=== PATIENT | female | born 1980 | race Caucasian/White ===

== ENCOUNTER → 2018-07-06 | Outpatient (CLI) | payer BC ==
[2018-07-06 17:34] LABS: ABSOLUTE LYMPHOCYTES (AUTO) 1.7 10^3/uL (0.5-4.7); ABSOLUTE MONOCYTES (AUTO) 0.4 10^3/uL (0.1-1.4); BASOPHILS % (AUTO) 0.6 % (0-2); HEMATOCRIT 31.4 % (36.0-47.0); HEMOGLOBIN 10.2 g/dL (12.0-15.5); LYMPHOCYTES % (AUTO) 42.3 % (13-45); MEAN CORPUSCULAR HEMOGLOBIN 22.5 pg (27.0-33.4); MEAN CORPUSCULAR HGB CONC 32.4 g/dL (32.0-36.0); MEAN CORPUSCULAR VOLUME 69 fl (80-97); MONOCYTES % (AUTO) 8.7 % (3-13); PLATELET COUNT 422 10^3/uL (150-450); RED BLOOD COUNT 4.53 10^6/uL (3.72-5.28); RED CELL DISTRIBUTION WIDTH 16.8 % (11.5-14.0); SEGMENTED NEUTROPHILS % (AUTO) 48.4 % (42-78); TOTAL CELLS COUNTED % (AUTO) 100 %; WHITE BLOOD COUNT 4.1 10^3/uL (4.0-10.5)
[2018-07-06 17:42] LABS: APPEARANCE,URINE SLIGHTLY-CLOUDY; BILIRUBIN,URINE NEGATIVE (NEGATIVE); COLOR,URINE STRAW; GLUCOSE, URINE NEGATIVE (NEGATIVE); KETONES,URINE NEGATIVE (NEGATIVE); LEUKOCYTE ESTERASE,URINE SMALL (NEGATIVE); NITRITE,URINE NEGATIVE (NEGATIVE); PROTEIN,URINE NEGATIVE (NEGATIVE); URINE SPECIFIC GRAVITY 1.008; UROBILINOGEN,URINE NEGATIVE mg/dL (<2.0)
[2018-07-06 17:43] LABS: INTERNATIONAL RATION (INR) 0.95; PARTIAL THROMBOPLASTIN TIME 31.6 SEC (23.5-35.8); PROTHROMBIN TIME 13.2 SEC (11.4-15.4)
== END ==
LOC: OD 16:04
PROVIDERS: ATTEND Physician Assistant
DX: G89.4 Chronic pain syndrome (principal)
CPT/HCPCS: 36415; 81001; 85025; 85610; 85730

== ENCOUNTER 2018-08-18 06:04 | Day surgery (SDC) | payer BC ==
[2018-08-11 11:29] LABS: HEMATOCRIT 32.2 % (36.0-47.0); MEAN CORPUSCULAR HEMOGLOBIN 21.9 pg (27.0-33.4); MEAN CORPUSCULAR HGB CONC 31.1 g/dL (32.0-36.0); MEAN CORPUSCULAR VOLUME 70 fl (80-97); PLATELET COUNT 418 10^3/uL (150-450); RED BLOOD COUNT 4.58 10^6/uL (3.72-5.28); RED CELL DISTRIBUTION WIDTH 17.1 % (11.5-14.0); WHITE BLOOD COUNT 5.7 10^3/uL (4.0-10.5)
[2018-08-11 11:40] LABS: INTERNATIONAL RATION (INR) 0.96; PROTHROMBIN TIME 13.3 SEC (11.4-15.4)
[2018-08-11 11:58] LABS: APPEARANCE,URINE CLOUDY; BILIRUBIN,URINE MODERATE (NEGATIVE); COLOR,URINE YELLOW; GLUCOSE, URINE NEGATIVE (NEGATIVE); KETONES,URINE NEGATIVE (NEGATIVE); LEUKOCYTE ESTERASE,URINE TRACE (NEGATIVE); NITRITE,URINE NEGATIVE (NEGATIVE); PROTEIN,URINE 30 mg/dL (NEGATIVE); URINE SPECIFIC GRAVITY 1.024; UROBILINOGEN,URINE NEGATIVE mg/dL (<2.0)
--- NOTE | 2018-08-11 13:12 | EKG REPORT ---
SEVERITY:- OTHERWISE NORMAL ECG - SINUS BRADYCARDIA : Confirmed by: Marimar Israel MD 11-Aug-2018 13:11:53
--- NOTE | 2018-08-11 14:13 | RADIOLOGY REPORT (SQ) ---
EXAM DESCRIPTION: CHEST PA/LATERAL COMPLETED DATE/TIME: 08/11/2018 11:24 am REASON FOR STUDY: Pre-Op COMPARISON: None. EXAM PARAMETERS: NUMBER OF VIEWS: Two views. TECHNIQUE: Digital Frontal and Lateral radiographic views of the chest acquired. RADIATION DOSE: NA LIMITATIONS: None. FINDINGS: LUNGS AND PLEURA: No opacities, masses or pneumothorax. No pleural effusion. MEDIASTINUM AND HILAR STRUCTURES: No masses or contour abnormalities. HEART AND VASCULAR STRUCTURES: Heart normal size. No evidence for failure. BONES: No acute findings. HARDWARE: None. OTHER: No other significant finding. IMPRESSION: 1. NO SIGNIFICANT RADIOGRAPHIC FINDING IN THE CHEST. TECHNICAL DOCUMENTATION: JOB ID: [id number] [email or web address]- All Rights Reserved Reading location - IP/workstation name: [email or web address]
[~2018-08-18 06:04] MED LIST: CLINDAMYCIN 600 MG/D5W RTU 600 MG/50 ML RTUPB IV ONE; CLINDAMYCIN 600 MG/D5W RTU 600 MG/50 ML RTUPB IV PRN; LACTATED RINGERS 1000 ML IV PRN; LIDOCAINE 0.5% INJ-PF (5 MG/ML) 50 ML SDV SUBCUT PRN
[2018-08-18] MEDS ORDERED: BUPIVACAINE HCL 0.5 % INJ/PF 30 ML SDV ONE (06:39)
[2018-08-18] MEDS ORDERED: SODIUM BICARBONATE 8.4% INJ 50 MEQ/50 ML DISP.SYRIN ONE (06:39)
[2018-08-18] MEDS ORDERED: LIDOCAINE 1% INJ-PF (10 MG/ML) 30 ML SDV ONE ×3 (06:39→08:32)
[2018-08-18] MEDS ORDERED: BUPIVACAINE HCL 0.25% /EPINEPHRINE INJ/PF 30 ML SDV ONE (06:39)
[2018-08-18] MEDS ORDERED: FENTANYL CITRATE INJ/PF 100 MCG/2 ML AMPUL ONE (06:43)
[2018-08-18] MEDS ORDERED: MIDAZOLAM 2 MG/2 ML INJ ONE (06:43)
[2018-08-18] MEDS ORDERED: PROPOFOL INJ 200 MG/20 ML VIAL IV ONE ×2 (06:44→08:40)
[2018-08-18] MEDS ORDERED: PROMETHAZINE HCL INJ 25 MG/1 ML VIAL IV PRN (08:17)
[2018-08-18] MEDS ORDERED: FENTANYL CITRATE INJ/PF 100 MCG/2 ML AMPUL IV PRN ×3 (08:17)
[2018-08-18] MEDS ORDERED: NALBUPHINE HCL INJ 10 MG/1 ML AMPULE ONE (08:36)
[2018-08-18] MEDS ORDERED: CLINDAMYCIN 600 MG/D5W RTU 600 MG/50 ML RTUPB IV ONE (09:37)
[2018-08-18] MEDS ORDERED: OXYCODONE-ACETAMINOPHEN 5-325 MG TABLET PO PRN (09:39)
[2018-08-18] MEDS ORDERED: OXYCODONE-ACETAMINOPHEN 5-325 MG TABLET ONE (10:15)
--- NOTE | 2018-08-18 10:32 | OPERATIVE REPORT E ---
Operative Report NAME: TIANA ROJAS : 1980 AGE: 37Y DATE OF SURGERY: 08/18/2018 ROOM: PREOPERATIVE DIAGNOSIS: LUMBAR RADICULOPATHY, POST LAMINECTOMY SYNDROME, AND INTRACTABLE BACK AND LOWER EXTREMITY PAIN. POSTOPERATIVE DIAGNOSIS: LUMBAR RADICULOPATHY, POST LAMINECTOMY SYNDROME, AND INTRACTABLE BACK AND LOWER EXTREMITY PAIN. OPERATION: Implantation of right and left spinal cord simulator and electrodes under fluoroscopic guidance and implantation of programmable rechargeable [employer] pulse generator, complex programming, and fluoroscopy for needle and wire placement. INDICATION: Intractable pain with successful outpatient trial with spinal cord stimulation. SURGEON: PRIMARY: SAMIR HARDING M.D. RESIDENTIAL COLLECTIONS: ALEXEY CHOWDHURY M.D. ANESTHESIA: MAC TISSUE REMOVED OR ALTERED: None. PROCEDURE: After informing obtained consent and advising the patient of the risks and benefits, including serious neurological injury, bleeding, infection, allergic reaction, paralysis, aggravation of pain, poor pain relief, and , she was taken to the operating room and placed comfortably in the prone position. Comfort was assessed visually and verbally. Monitors were applied. MAC anesthesia was administered. She was then draped after prepping with chlorhexidine with appropriate drying time. The spine was evaluated under fluoroscopy and suitable midline lumbar incision site was identified. A predetermined site for the pulse generator over the right gluteal region had also been selected. Both regions were anesthetized with 1% lidocaine with bicarb as necessary in the skin as well as subcutaneous tissues and 0.25% bupivacaine with epinephrine was then utilized as a supplemental local anesthetic for hemostasis and additional anesthesia. Sharp and blunt dissection were performed in both regions to create suitable working space. Hemostasis was obtained with electrocautery. The pulse generator pocket with the site was created without difficulty. The lumbar fascia was identified. The Shelbi retractor was placed. *------* was then utilized for insertion of the 14-gauge Touhy needles to insert the L1-L2 interspace. The octrode leads were then placed through the right and left wires and advanced up to the mid T8 region so that the spanning electrodes went from T8 to mid T10. The pursestrings were placed around each of the needles followed by distal stay sutures. The leads were inspected frequently for appropriate location in the posterior epidural space as well as prevention of movement during manipulation. The right Touhy needle was removed with care being taken not to dislodge off position of the electrode. The pursestrings with 2 Mersilene were secured followed by placement of the anchor. The distal stay suture was then placed on the anchor as well and secured. This was repeated on the left. The lead position was checked and was felt to be satisfactory. The leads were then tunneled, marking the left lead with a black marker. They were tunneled to the pulse generator site without difficulty. They were connected to the pulse generator. Hex nuts were secured. Impedance was tested and found to be satisfactory. The pulse generator was placed in the wound after irrigation with the labeling facing the skin. Additional irrigation was performed in both locations. The wounds were then closed. The midline incision was closed with 2-0 pop-off Vicryl followed by 3-0 pop-off Vicryl followed by Dermabond tape and cement. The gluteal incision was closed with a single layer of 3-0 pop-offs, inverted vertical mattress sutures, followed by Dermabond tape and cement. Upon completion, the patient was taken to the PACU for further postoperative care and monitoring. DICTATING PHYSICIAN: ALEXEY CHOWDHURY M.D. [id number] PHY#: [id number] ID: [id number] JOB#: [id number] ACCT: [id number] cc:ALEXEY CHOWDHURY M.D. >
[2018-08-18 11:17] VITALS: BP 111/82
--- NOTE | 2018-08-18 14:30 | RADIOLOGY REPORT (SQ) ---
EXAM DESCRIPTION: NO CHG FLUORO; THORACOLUMBAR SPINE AP/LAT COMPLETED DATE/TIME: 08/18/2018 1:32 pm REASON FOR STUDY: SPINAL STIMULATOR PLCMT ASST WITH FLUORO IN OR G89.4 CHRONIC PAIN SYNDROME COMPARISON: None. FLUOROSCOPY TIME: 3.6 minutes 6 images saved to PACS. TECHNIQUE: Intra-operative images acquired during surgical procedure to evaluate progress. NUMBER OF IMAGES: 6 LIMITATIONS: None. FINDINGS: Placement of neurostimulator. IMPRESSION: IMAGE(S) OBTAINED DURING PROCEDURE. COMMENT: Quality ID [id number]: Final reports for procedures using fluoroscopy that document radiation exp osure indices, or exposure time and number of fluorographic images (if radiation exposure indices are not available) Please consult full operative report of the attending physician for description of the procedure. TECHNICAL DOCUMENTATION: JOB ID: [id number] [employer]- All Rights Reserved Reading location - IP/workstation name: [email or web address]
--- NOTE | 2018-08-18 14:30 | RADIOLOGY REPORT (SQ) ---
EXAM DESCRIPTION: NO CHG FLUORO; THORACOLUMBAR SPINE AP/LAT COMPLETED DATE/TIME: 08/18/2018 1:32 pm REASON FOR STUDY: SPINAL STIMULATOR PLCMT ASST WITH FLUORO IN OR G89.4 CHRONIC PAIN SYNDROME COMPARISON: None. FLUOROSCOPY TIME: 3.6 minutes 6 images saved to PACS. TECHNIQUE: Intra-operative images acquired during surgical procedure to evaluate progress. NUMBER OF IMAGES: 6 LIMITATIONS: None. FINDINGS: Placement of neurostimulator. IMPRESSION: IMAGE(S) OBTAINED DURING PROCEDURE. COMMENT: Quality ID [id number]: Final reports for procedures using fluoroscopy that document radiation exp osure indices, or exposure time and number of fluorographic images (if radiation exposure indices are not available) Please consult full operative report of the attending physician for description of the procedure. TECHNICAL DOCUMENTATION: JOB ID: [id number] [employer]- All Rights Reserved Reading location - IP/workstation name: [email or web address]
== END 2018-08-18 11:15 | disposition home or self-care (01) ==
LOC: OROUT 06:04
PROVIDERS: ATTEND Student in an Organized Health Care Education/Training Program
DX: G89.4 Chronic pain syndrome (principal); M96.1 Postlaminectomy syndrome, not elsewhere classified; M54.16 Radiculopathy, lumbar region; M54.5 Low back pain; E78.5 Hyperlipidemia, unspecified; I10 Essential (primary) hypertension; E03.9 Hypothyroidism, unspecified; F45.42 Pain disorder with related psychological factors; R01.1 Cardiac murmur, unspecified; E66.9 Obesity, unspecified; Z68.45 Body mass index [BMI] 70 or greater, adult; Z79.891 Long term (current) use of opiate analgesic; Z79.899 Other long term (current) drug therapy; Z88.0 Allergy status to penicillin; Z88.8 Allergy status to other drugs, medicaments and biological substances
CPT/HCPCS: 63685; 63650; 93005; 36415; 85027; 85610; 85730; 81025; 81001; 71046; 72080; 93010; C1778; J2250; J3490 ×3; J3010; J2300; J2704; 1936